=== PATIENT | male | born 1950 | race Caucasian/White ===

== ENCOUNTER → 2024-02-24 | Outpatient (CLI) | payer MEDICARE, BC, SELFPAY ==
[2024-02-24 08:45] LABS: Prostate Specific Antigen 0.63 ng/mL (0-4.00)
[2024-02-24 08:47] LABS: Alanine Aminotransferase 64 U/L (10-49); Albumin, Serum 4.9 gm/dL (3.4-4.8); Albumin/Globulin Ratio 2.2 (1.2-2.2); Alkaline Phosphatase 72 U/L (46-116); Anion Gap 7 (7-16); Aspartate Amino Transferase 39 U/L (0-34); BUN/Creatinine Ratio 18 Ratio (12-20); Bilirubin,Total 0.8 mg/dL (0.3-1.2); Blood Urea Nitrogen 16 mg/dL (9-23); Calcium 9.8 mg/dL (8.3-10.6); Calcium (Corrected) 9.8 mg/dL (8.5-10.1); Carbon Dioxide 29.9 mMol/L (20.0-31.0); Cardiac Risk Estimate 4.7 RATIO (4.0-6.7); Chloride 102 mMol/L (98-107); Cholesterol 170 mg/dL (132-200); Creatinine (Component) 0.9 mg/dL (0.6-1.3); Globulin 2.2 gm/dL (2.3-3.5); Glucose 121 mg/dL (74-106); HDL Cholesterol 36 mg/dL (40-60); LDL Cholesterol,Calculated 83 mg/dL (0-130); Osmolality,Calculated 279 (275-295); Potassium 4.5 mMol/L (3.4-5.1); Sodium 139 mMol/L (136-145); Total Protein 7.1 gm/dL (5.7-8.2); Triglycerides 256 mg/dL (30-150); eGFR > 60 See Note
== END | disposition home or self-care (01) ==
LOC: COPL 07:05
PROVIDERS: PCP Family Medicine; Referring Provider Family Medicine; Visit Provider Family Medicine
DX: E78.2 Mixed hyperlipidemia (principal); N40.1 Benign prostatic hyperplasia with lower urinary tract symptoms; R79.9 Abnormal finding of blood chemistry, unspecified
CPT/HCPCS: 36415; 80053; 80061; 84153

== ENCOUNTER → 2024-03-09 | Outpatient (CLI) | payer MEDICARE, BC, SELFPAY ==
--- NOTE | 2024-03-09 | XR_ITS ---
EXAMINATION: Cervical spine, 5 views Technique: Cervical spine AP, AP odontoid, lateral, bilateral obliques, 5 views Exam date and time: March 09, 2024 0800 hours INDICATIONS: Neck pain radiating to left arm numbness in the left arm FINDINGS: Adequate alignment cervical vertebral bodies Prominent osteopenia Moderate to advanced disc narrowing C3-C4, C4-C5, C5-C6, C6-C7 Posterior osteophyte formation C5-C6, C6-C7 with mild bilateral neural foraminal stenosis Intact odontoid IMPRESSION: Diffuse cervical degenerative disc disease, advanced C5-C6, C6-C7
== END | disposition home or self-care (01) ==
LOC: CDIM 07:39
PROVIDERS: PCP Family Medicine; Referring Provider Family Medicine; Visit Provider Family Medicine
DX: M50.322 Other cervical disc degeneration at C5-C6 level (principal)
CPT/HCPCS: 72050

== ENCOUNTER → 2024-07-01 | Outpatient (CLI) | payer MEDICARE, BC, SELFPAY ==
[2024-07-01 09:44] LABS: Albumin, Serum 4.7 gm/dL (3.4-4.8); Anion Gap 7 (7-16); BUN/Creatinine Ratio 17 Ratio (12-20); Blood Urea Nitrogen 15 mg/dL (9-23); Calcium 9.4 mg/dL (8.3-10.6); Calcium (Corrected) 9.4 mg/dL (8.5-10.1); Carbon Dioxide 29.2 mMol/L (20.0-31.0); Chloride 104 mMol/L (98-107); Creatinine (Component) 0.9 mg/dL (0.6-1.3); Glucose 118 mg/dL (74-106); Osmolality,Calculated 281 (275-295); Phosphorous 2.3 mg/dL (2.4-5.1); Potassium 4.3 mMol/L (3.4-5.1); Sodium 140 mMol/L (136-145); eGFR > 60 See Note
== END | disposition home or self-care (01) ==
LOC: COPL 08:27
PROVIDERS: PCP Family Medicine; Referring Provider Ophthalmology; Visit Provider Ophthalmology
DX: H05.242 Constant exophthalmos, left eye (principal)
CPT/HCPCS: 36415; 80069